=== PATIENT | male | born 1970 | race Hispanic/Latino ===

== ENCOUNTER 2021-03-17 11:46 | Emergency (ER) | payer SELFPAY ==
[2021-03-17 13:08] VITALS: BP 155/107
[2021-03-17] MEDS ORDERED: SODIUM CHLORIDE 0.9% 1000 ML 1,000 ML IV ONE (13:36)
[2021-03-17] MEDS ORDERED: MORPHINE 4 MG/1 ML INJ IV ONE (13:36)
[2021-03-17] MEDS ORDERED: ONDANSETRON 4 MG/2 ML INJ IV ONE (13:36)
--- NOTE | 2021-03-17 13:38 | Emergency Department Report ---
ED General Adult HPI - General Chief complaint: Abdominal Pain Stated complaint: ABD PAIN PUI?: No Time Seen by Provider: 03/17/21 13:25 Source: patient, RN notes reviewed Mode of arrival: Ambulatory Limitations: No Limitations - History of Present Illness Initial comments: The patient was evaluated in the emergency department for symptoms described in the history of present illness. He/she was evaluated in the context of the global COVID-19 pandemic, which necessitated consideration that the patient might be at risk for infection with the virus that causes COVID-19. Institutional protocols and algorithms that pertain to the evaluation of patients at risk for COVID-19 are in a state of rapid change based on information released by regulatory bodies including the CDC and federal and state organizations. These policies and algorithms were followed during the patient's care in the emergency department. Please note that these policies, procedures and recommendations changed on a rapid basis. Patient is a 50-year-old gentleman, who reports that he is not COVID-19 vaccinated, presenting to the ER today with a complaint of nontraumatic lower quadrant abdominal pain, pressure, and achiness. Also describes bilateral testicular achiness and fullness, without dysuria. Denies headache, neck pain, chest pain, cough and loss of taste or smell -: Gradual, days(s) Location: abdomen, genitals Severity scale (0 -10): 9 Quality: aching Consistency: intermittent Improves with: rest Worsens with: movement - Related Data Previous Rx's Medication Instructions Recorded Last Taken Type Acetaminophen [Non-Aspirin Extra 500 mg PO Q6HR PRN #30 tablet 03/17/21 Unknown Rx Strength] Doretha Root [Doretha] 250 mg PO QID PRN #30 capsule 03/17/21 Unknown Rx Ibuprofen [Motrin] 600 mg PO Q8H PRN #30 tablet 03/17/21 Unknown Rx Allergies Allergy/AdvReac Type Severity Reaction Status Date / Time No Known Allergies Allergy Unverified 03/17/21 13:06 ED Review of Systems ROS: Stated complaint: ABD PAIN Other details as noted in HPI ED Past Medical Hx - Medications Home Medications: Home Medications Medication Instructions Recorded Confirmed Last Taken Type Acetaminophen [Non-Aspirin Extra 500 mg PO Q6HR PRN #30 tablet 03/17/21 Unknown Rx Strength] Doretha Root [Doretha] 250 mg PO QID PRN #30 capsule 03/17/21 Unknown Rx Ibuprofen [Motrin] 600 mg PO Q8H PRN #30 tablet 03/17/21 Unknown Rx ED Physical Exam - General Limitations: No Limitations General appearance: alert, anxious - Head Head exam: Present: atraumatic, normocephalic - Eye Eye exam: Present: normal appearance, EOMI. Absent: nystagmus - ENT ENT exam: Present: normal exam, normal orophraynx, mucous membranes moist, normal external ear exam - Neck Neck exam: Present: normal inspection, full ROM. Absent: tenderness, meningismus - Respiratory Respiratory exam: Present: normal lung sounds bilaterally. Absent: respiratory distress, wheezes, rales, rhonchi, stridor, decreased breath sounds - Cardiovascular Cardiovascular Exam: Present: regular rate, normal rhythm, normal heart sounds. Absent: bradycardia, tachycardia, irregular rhythm, systolic murmur, diastolic murmur, rubs, gallop - GI/Abdominal GI/Abdominal exam: Present: soft, tenderness. Absent: distended, guarding, rebound, rigid, pulsatile mass - Rectal Rectal exam: Present: deferred - exam: Present: other (Minimal bilateral testicular tenderness noted bilaterally. Testicles retracted bilaterally. Cremasteric reflex intact bilaterally. Chaperoned by Teo Blunt) - Extremities Exam Extremities exam: Present: normal inspection, full ROM, other (2+ pulses noted in the bilateral upper and lower extremities. There is no palpable cord. negative Homans sign. Muscular compartments are soft. The pelvis is stable.). Absent: pedal edema, calf tenderness - Back Exam Back exam: Present: normal inspection. Absent: tenderness, CVA tenderness (R), CVA tenderness (L), paraspinal tenderness, vertebral tenderness - Neurological Exam Neurological exam: Present: alert, oriented X3, normal gait, other (No facial droop. Tongue midline. Extraocular movements intact bilaterally. Facial sensation intact to light touch in V1, V2, V3 distribution bilaterally. 5 and a 5 strength in 4 extremities. Sensation intact to light touch in 4 extremities.). Absent: motor sensory deficit - Psychiatric Psychiatric exam: Present: anxious - Skin Skin exam: Present: warm, dry, intact, normal color. Absent: rash ED Course Vital Signs 03/17/21 13:07 Temperature 98.5 F Pulse Rate 89 Respiratory 16 Rate Blood Pressure 155/107 [Right] O2 Sat by Pulse 98 Oximetry - Reevaluation(s) Reevaluation #1: 03/17/21 16:24 Differential diagnosis, including but not limited to: Colitis, diverticulitis, urinary tract infection, renal colic, appendicitis, perforated viscus, testicular torsion, hernia Assessment and plan: 50-year-old gentleman, who is afebrile, with reassuring vital signs, presenting with lower abdominal pain, nonspecific dull testicular ache. Laboratory studies unremarkable. Testicular ultrasound does not indicate any need for emergent intervention. CT scan of the abdomen pelvis is pending. Treat the patient's symptoms. Reassess. Discussed with the patient. He is agreeable to this plan of care 03/17/21 17:08 CT scan abdomen pelvis reviewed and appreciated. No emergent findings noted. Patient resting comfortably in stretcher. Chronic findings appreciated. Lung sounds are clear. Patient counseled on significance of incidental abnormal findings. Discharged with nonnarcotic pain medication, instructions to follow-up with outpatient primary care. Return precautions reviewed. ED Medical Decision Making - Lab Data Result diagrams: 03/17/21 13:57 03/17/21 15:04 Vital Signs 03/17/21 13:07 Temperature 98.5 F Pulse Rate 89 Respiratory 16 Rate Blood Pressure 155/107 [Right] O2 Sat by Pulse 98 Oximetry Lab Results 03/17/21 03/17/21 03/17/21 Range/Units 13:57 13:57 13:57 WBC 9.4 (4.5-11.0) K/mm3 RBC 5.32 H (3.65-5.03) M/mm3 Hgb 17.6 H (11.8-15.2) gm/dl Hct 53.3 H (35.5-45.6) % MCV 100 H (84-94) fl MCH 33 H (28-32) pg MCHC 33 (32-34) % RDW 13.1 L (13.2-15.2) % Plt Count 286 (140-440) K/mm3 Lymph % (Auto) 19.2 (13.4-35.0) % [place] % (Auto) 10.3 H (0.0-7.3) % Eos % (Auto) 0.3 (0.0-4.3) % Baso % (Auto) 1.0 (0.0-1.8) % Lymph # (Auto) 1.7 (1.2-5.4) K/mm3 Charlton # (Auto) 1.0 H (0.0-0.8) K/mm3 Eos # (Auto) 0.0 (0.0-0.4) K/mm3 Baso # (Auto) 0.1 (0.0-0.1) K/mm3 Seg Neutrophils % 69.2 (40.0-70.0) % Seg Neutrophils # 6.7 (1.8-7.7) K/mm3 Sodium (137-145) mmol/L Potassium (3.6-5.0) mmol/L Chloride (98-107) mmol/L Carbon Dioxide (22-30) mmol/L Anion Gap mmol/L BUN (9-20) mg/dL Creatinine (0.8-1.3) mg/dL Estimated GFR ml/min BUN/Creatinine Ratio % Glucose (75-100) mg/dL Calcium (8.4-10.2) mg/dL Magnesium 2.00 (1.7-2.3) mg/dL Total Bilirubin 0.50 (0.1-1.2) mg/dL Direct Bilirubin < 0.2 (0-0.2) mg/dL Indirect Bilirubin 0.3 mg/dL AST 75 H (5-40) units/L ALT 128 H (7-56) units/L Alkaline Phosphatase 121 (35-129) units/L Total Creatine Kinase 165 (55-170) units/L Total Protein 7.7 (6.3-8.2) g/dL Albumin 4.6 (3.9-5) g/dL Albumin/Globulin Ratio 1.5 % Lipase 26 (13-60) units/L Urine Color (Yellow) Urine Turbidity (Clear) Urine pH (5.0-7.0) Ur Specific [place] (1.003-1.030) Urine Protein (Negative) mg/dL Urine Glucose (UA) (Negative) mg/dL Urine Ketones (Negative) mg/dL Urine Blood (Negative) Urine Nitrite (Negative) Urine Bilirubin (Negative) Urine Urobilinogen (<2.0) mg/dL Ur Leukocyte Esterase (Negative) Urine WBC (Auto) (0.0-6.0) /HPF Urine RBC (Auto) (0.0-6.0) /HPF Urine Yeast (Budding) /HPF 03/17/21 03/17/21 Range/Units 15:04 Unknown WBC (4.5-11.0) K/mm3 RBC (3.65-5.03) M/mm3 Hgb (11.8-15.2) gm/dl Hct (35.5-45.6) % MCV (84-94) fl MCH (28-32) pg MCHC (32-34) % RDW (13.2-15.2) % Plt Count (140-440) K/mm3 Lymph % (Auto) (13.4-35.0) % Charl[place] % (Auto) (0.0-7.3) % Eos % (Auto) (0.0-4.3) % Baso % (Auto) (0.0-1.8) % Lymph # (Auto) (1.2-5.4) K/mm3 [place] # (Auto) (0.0-0.8) K/mm3 Eos # (Auto) (0.0-0.4) K/mm3 Baso # (Auto) (0.0-0.1) K/mm3 Seg Neutrophils % (40.0-70.0) % Seg Neutrophils # (1.8-7.7) K/mm3 Sodium 138 (137-145) mmol/L Potassium 4.6 (3.6-5.0) mmol/L Chloride 99.7 (98-107) mmol/L Carbon Dioxide 23 (22-30) mmol/L Anion Gap 20 mmol/L BUN 9 (9-20) mg/dL Creatinine 0.7 L (0.8-1.3) mg/dL Estimated GFR > 60 ml/min BUN/Creatinine Ratio 13 % Glucose 101 H (75-100) mg/dL Calcium 9.7 (8.4-10.2) mg/dL Magnesium (1.7-2.3) mg/dL Total Bilirubin (0.1-1.2) mg/dL Direct Bilirubin (0-0.2) mg/dL Indirect Bilirubin mg/dL AST (5-40) units/L ALT (7-56) units/L Alkaline Phosphatase (35-129) units/L Total Creatine Kinase (55-170) units/L Total Protein (6.3-8.2) g/dL Albumin (3.9-5) g/dL Albumin/Globulin Ratio % Lipase (13-60) units/L Urine Color Yellow (Yellow) Urine Turbidity Clear (Clear) Urine pH 8.0 H (5.0-7.0) Ur Specific [place] 1.017 (1.003-1.030) Urine Protein <15 mg/dl (Negative) mg/dL Urine Glucose (UA) Neg (Negative) mg/dL Urine Ketones Tr (Negative) mg/dL Urine Blood Neg (Negative) Urine Nitrite Neg (Negative) Urine Bilirubin Neg (Negative) Urine Urobilinogen 4.0 (<2.0) mg/dL Ur Leukocyte Esterase Neg (Negative) Urine WBC (Auto) < 1.0 (0.0-6.0) /HPF Urine RBC (Auto) 13.0 (0.0-6.0) /HPF Urine Yeast (Budding) 1+ /HPF - Radiology Data Radiology results: pending, report reviewed, image reviewed Scrotal Ultrasound HISTORY: testicle pain. TECHNIQUE: Grayscale and color imaging performed. COMPARISON: None FINDINGS: Both testicles are normal in size and appearance with preserved blood flow. A 5 mm epididymal head cyst is present on the right. Left epididymis is normal. No hydrocele or varicocele. IMPRESSION: No acute abnormality identified. Tiny epididymal head cyst on the right. Signer Name: Isael Ivory MD Signed: 03/17/2021 2:29 PM Workstation Name: [id number] CT ABDOMEN AND PELVIS WITH CONTRAST INDICATION / CLINICAL INFORMATION: acute lower abd pain. TECHNIQUE: Axial CT images were obtained through the abdomen and pelvis after Omnipaque 300, 100 cc IV contrast. All [address] scans at this location are performed using CT dose reduction for ALARA by means of automated exposure control. COMPARISON: None available. FINDINGS: LOWER CHEST: Mild basilar parenchymal opacity. LIVER: Mild diffuse fatty infiltration. GALLBLADDER: No significant abnormality. BILE DUCTS: No significant abnormality. PANCREAS: No significant abnormality. SPLEEN: No significant abnormality. ADRENALS: No significant abnormality. RIGHT KIDNEY / URETER: No significant abnormality. LEFT KIDNEY / URETER: No significant abnormality. STOMACH / SMALL BOWEL: No significant abnormality. COLON: Noninflamed diverticulosis greatest at the descending and sigmoid colon. APPENDIX: No significant abnormality. PERITONEUM: No free fluid. No free air. No fluid collection. LYMPH NODES: No significant adenopathy. VASCULAR STRUCTURES: No significant abnormality. URINARY BLADDER: No significant abnormality. REPRODUCTIVE ORGANS: No significant abnormality. ADDITIONAL FINDINGS: None. SKELETAL SYSTEM: No significant abnormality. IMPRESSION: 1. Changes at the lung bases likely represent residual from previous Covid infection. 2. Noninflamed colonic diverticulosis. 3. Negative for obstruction or localized inflammation. Signer Name: Broderick Nova MD Signed: 03/17/2021 3:52 PM Workstation Name: [email or web address] Critical care attestation.: If time is entered above; I have spent that time in minutes in the direct care of this critically ill patient, excluding procedure time. ED Disposition Clinical Impression: Cyst, epididymis, Testicular pain, Acute bilateral lower abdominal pain, Colon, diverticulosis, Abnormal finding on CT scan Disposition: HOME / SELF CARE / HOMELESS Is pt being admited?: No Does the pt Need Aspirin: No Condition: Good Additional Instructions: Please take the pain medications and nausea medications as needed and directed. Please make certain to follow-up with a primary care doctor within 7 to 10 days for follow-up and reevaluation. CT scan of the abdomen pelvis demonstrated evidence of probable prior COVID-19 infection. Patient should have an outpatient COVID-19 test, and completed COVID-19 vaccination series when able to. CT scan of the abdomen pelvis also demonstrated colonic diverticulosis; patient is recommended to follow-up with an outpatient plane tender within the next 2 months for evaluation for outpatient colonoscopy. Not following up as recommended may result in undiagnosed cancer, tumor, malignancy. Ultrasound of the testicle showed no acute or emergent findings. Incidental epididymal cyst is suggested. The patient may follow-up with a primary care doctor or urologist for this at his convenience. Do not take metformin medication for the next 2 days, if patient takes this medication. Please have a primary care doctor contact the medical records department to obtain copies of laboratory studies and radiology studies and follow-up on nonemergent incidental abnormal findings. Please return to the emergency room right away with new pain, worsened pain, migration of pain, projectile vomiting, change in mental status, confusion, magan bility tolerate liquid feeds, new, worsened or different symptoms not present on the initial emergency room evaluation Referrals: [facility] [Provider Group] - 7-10 days [facility] [Provider Group] - as needed [facility] [Provider Group] - as needed
[2021-03-17 14:36] LABS: Eosinophils % (Auto) 0.3 % (0.0-4.3); Lymphocytes % (Auto) 19.2 % (13.4-35.0); Monocytes % (Auto) 10.3 % (0.0-7.3)
[2021-03-17 14:42] LABS: Basophils # (Auto) 0.1 K/mm3 (0.0-0.1); Hematocrit 53.3 % (35.5-45.6); Hemoglobin 17.6 gm/dl (11.8-15.2); Lymphocytes # (Auto) 1.7 K/mm3 (1.2-5.4); Mean Corpuscular HGB Conc 33 % (32-34); Mean Corpuscular Volume 100 fl (84-94); Platelet Count 286 K/mm3 (140-440); Red Blood Count 5.32 M/mm3 (3.65-5.03); Red Cell Distribution Width 13.1 % (13.2-15.2)
[2021-03-17 14:46] LABS: Alanine Aminotransferase 128 units/L (7-56); Albumin 4.6 g/dL (3.9-5)
[2021-03-17 14:48] LABS: Bilirubin,Direct < 0.2 mg/dL (0-0.2)
[2021-03-17 15:31] LABS: Bilirubin,Urine NEG (Negative); Blood,Urine NEG (Negative); Color,Urine Yellow (Yellow); Protein,Urine <15 mg/dL mg/dL (Negative); WBC,Urine < 1.0 /HPF (0.0-6.0)
--- NOTE | 2021-03-17 15:33 | Ultrasound Report ---
Scrotal Ultrasound HISTORY: testicle pain. TECHNIQUE: Grayscale and color imaging performed. COMPARISON: None FINDINGS: Both testicles are normal in size and appearance with preserved blood flow. A 5 mm epididym al head cyst is present on the right. Left epididymis is normal. No hydrocele or varicocele. IMPRESSION: No acute abnormality identified. Tiny epididymal head cyst on the right. Signer Name: Isael Ivory MD Signed: 03/17/2021 3:29 PM Workstation Name: [id number]
[2021-03-17 15:49] LABS: Blood Urea Nitrogen 9 mg/dL (9-20); Calcium 9.7 mg/dL (8.4-10.2); Hemolysis Index 20
[2021-03-17 15:59] LABS: BUN/Creatinine Ratio 13
--- NOTE | 2021-03-17 16:57 | Cat Scan Report ---
CT ABDOMEN AND PELVIS WITH CONTRAST INDICATION / CLINICAL INFORMATION: acute lower abd pain. TECHNIQUE: Axial CT images were obtained through the abdomen and pelvis after Omnipaque 300, 100 cc I V contrast. All CT scans at this location are performed using CT dose reduction for ALARA by means o f automated exposure control. COMPARISON: None available. FINDINGS: LOWER CHEST: Mild basilar parenchymal opacity. LIVER: Mild diffuse fatty infiltration. GALLBLADDER: No significant abnormality. BILE DUCTS: No significant abnormality. PANCREAS: No significant abnormality. SPLEEN: No significant abnormality. ADRENALS: No significant abnormality. RIGHT KIDNEY / URETER: No significant abnormality. LEFT KIDNEY / URETER: No significant abnormality. STOMACH / SMALL BOWEL: No significant abnormality. COLON: Noninflamed diverticulosis greatest at the descending and sigmoid colon. APPENDIX: No significant abnormality. PERITONEUM: No free fluid. No free air. No fluid collection. LYMPH NODES: No significant adenopathy. VASCULAR STRUCTURES: No significant abnormality. URINARY BLADDER: No significant abnormality. REPRODUCTIVE ORGANS: No significant abnormality. ADDITIONAL FINDINGS: None. SKELETAL SYSTEM: No significant abnormality. IMPRESSION: 1. Changes at the lung bases likely represent residual from previous Covid infection. 2. Noninflamed colonic diverticulosis. 3. Negative for obstruction or localized inflammation. Signer Name: Broderick Nova MD Signed: 03/17/2021 4:52 PM Workstation Name: [id number]
[2021-03-17] MEDS ORDERED: KETOROLAC 30 MG/1 ML INJ IV ONE (17:16)
== END 2021-03-17 18:29 | disposition home or self-care (01) ==
LOC: ED 11:46
DX: N50.3 Cyst of epididymis (principal); K57.90 Diverticulosis of intestine, part unspecified, without perforation or abscess without bleeding; R93.5 Abnormal findings on diagnostic imaging of other abdominal regions, including retroperitoneum
CPT/HCPCS: 36415; 74177; 80048; 80076; 81001; 82550; 83690; 83735; 85025; 93975; 96361; 96374; 96375; 99284; J1885; J2270; J2405; J7030; Q9967; Q0162